=== PATIENT | male | born 1980 | race African-American/Black ===

== ENCOUNTER 2016-08-06 14:30 | Emergency (ER) | payer OTHER ==
[~2016-08-06] VITALS: Ht 167.6 cm; Wt 67.0 kg
[2016-08-06 14:33] VITALS: BP 127/80; PULSE 90; RESP 15; TEMP 98.2; O2SAT 98
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
[2016-08-06] MEDS ORDERED: ACETAMINOPHEN/HYDROcodone 325 MG/5 MG TAB PO ONE (15:30)
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
--- NOTE | 2016-08-06 16:19 | RADRPT ---
EXAM DATE/TIME: 08/06/2016 15:59 [facility] COMPARISON: No previous studies available for comparison. INDICATIONS : Left foot pain MEDICAL HISTORY : None. SURGICAL HISTORY : None. ENCOUNTER: Initial ACUITY: 2 days PAIN SCORE: 9/10 LOCATION: Left foot FINDINGS: No definite fractures, or dislocations are identified. No definite lytic or sclerotic lesion is seen . The joint spaces are well maintained. CONCLUSION: Unremarkable study. Kyleigh Wooten MD on August 06, 2016 at 16:15 Board Certified Radiologist. This report was verified electronically.
== END 2016-08-06 17:09 | disposition home or self-care (01) ==
LOC: NEPD 14:30
DX: S90.32XA Contusion of left foot, initial encounter (principal); F17.210 Nicotine dependence, cigarettes, uncomplicated; X58.XXXA Exposure to other specified factors, initial encounter
CPT/HCPCS: 73630; 99283